=== PATIENT | male | born 1980 | race Two or more races ===

== ENCOUNTER 2017-08-11 03:29 | Emergency (ER) | payer MEDICAID ==
[~2017-08-11] VITALS: Ht 170.2 cm; Wt 79.4 kg
[~2017-08-11 03:29] MED LIST: BACITRACIN15 GM TOPIC; BACTRIM DS TAB1 EAC1 ORAL; FLOXIN OTIC10 DROP OT; NEXIUM20 MG ORAL; NKM
[2017-08-11 03:54] VITALS: BP 142/91
[2017-08-11] MEDS ORDERED: PREDNISONE20 MG ORAL (03:56)
[2017-08-11] MEDS ORDERED: BENADRYL25 MG ORAL (03:56)
[2017-08-11 04:02] VITALS: BP 142/91
--- NOTE | 2017-08-11 04:03 | Emergency Room Report ---
History of Present Illness General Chief Complaint: Skin Rash/Abscess Source: Patient, Medical Record Present Illness HPI Patient presents with complaints of rash He has noticed on his body back of his her Denies any itching to the area Denies any chest pain or shortness of breath Denies any recent travel Denies any change in his sleeping area Denies any change with work the area appeared this morning and he presents for further eval Allergies: Coded Allergies: No Known Allergies (Unverified , 11/22/14) Patient History Past Medical History: see triage record Pertinent Family History: none Reviewed Nursing Documentation: PMH: Agreed, PSxH: Agreed Nursing Documentation-PMH Hx Cardiac Problems: No Hx Cancer: No Hx Gastrointestinal Problems: Yes - gastritis Hx Neurological Problems: No Review of Systems All Other Systems: negative except mentioned in HPI Physical Exam Vital Signs Date Time Temp Pulse Resp B/P (MAP) Pulse Ox O2 Delivery O2 Flow Rate FiO2 08/11/17 03:34 97.3 80 15 142/91 98 Room Air Sp02 EP Interpretation: reviewed, normal General Appearance: well appearing, no apparent distress Head: normocephalic, atraumatic Eyes: bilateral eye PERRL, bilateral eye EOMI ENT: hearing grossly normal, normal pharynx Neck: supple Respiratory: chest non-tender, lungs clear Cardiovascular #1: regular rate, rhythm Gastrointestinal: non tender, soft Musculoskeletal: normal inspection Neurologic: normal inspection, alert, oriented x3 Skin: other - Several areas of small raised scabbed regions, abdominal area, several on the lower occipital region of the scalp, no obvious dermatomal pattern, no obvious fluctuance, no obvious involvement of the hands or feet oral mucosa is clear Lymphatic: no adenopathy Medical Decision Making Diagnostic Impression: Primary Impression: Rash and other nonspecific skin eruption ER Course Patient has a nonspecific rash Does not look to be in line with ringworm patient was concerned about this Does not appear to be in line with scabies likely insect bites clinically Patient treated symptomatically and will close outpatient followup , Last Vital Signs Date Time Temp Pulse Resp B/P (MAP) Pulse Ox O2 Delivery O2 Flow Rate FiO2 08/11/17 03:54 97.3 15 142/91 98 Room Air 08/11/17 03:34 80 Status: unchanged Disposition: HOME, SELF-CARE Condition: Stable Scripts Diphenhydramine Hcl* (BENADRYL*) 25 Mg Capsule 25 MG ORAL Q8HR Y for Itching, #21 CAP Prov: STEVEN JEAN D.O. 08/11/17 Prednisone* (PREDNISONE*) 20 Mg Tablet 20 MG ORAL BID, #10 TAB Prov: STEVEN JEAN D.O. 08/11/17 Referrals: NOT CHOSEN IPA/MD,REFERRING (PCP) Patient Instructions: Rash, Insect Bite, [id number] Additional Instructions: Patient is provided with the discharge instructions notified to follow up with primary doctor in the next 2-3 days otherwise return to the er with any worsening symptoms. Please note that this report is being documented using [employer] technology. This can lead to erroneous entry secondary to incorrect interpretation by the dictating instrument. STEVEN JEAN D.O. Aug 11, 2017 04:03
== END 2017-08-11 04:44 | disposition home or self-care (01) ==
LOC: EMR 03:46
DX: R21 Rash and other nonspecific skin eruption (principal)
CPT/HCPCS: 99284

== ENCOUNTER 2017-08-18 08:09 | Emergency (ER) | payer MEDICAID ==
[~2017-08-18] VITALS: Ht 170.2 cm; Wt 79.4 kg
[~2017-08-18 08:09] MED LIST changes: +BENADRYL25 MG ORAL; +PREDNISONE20 MG ORAL
[2017-08-18 08:24] VITALS: BP 143/96
[2017-08-18] MEDS ORDERED: PERMETHRIN60 GM TOPIC (08:33)
[2017-08-18 08:48] VITALS: BP 143/96
--- NOTE | 2017-08-18 08:56 | Emergency Room Report ---
History of Present Illness General Chief Complaint: Skin Rash/Abscess Source: Patient Present Illness HPI 37-year-old male presenting with a rash for more than 10 days. Patient was seen in the emergency room 7 days ago and was prescribed prednisone and Benadryl for symptomatic treatment of itchy rash. Patient states that it is on his arms in between his fingers and he feels a crawling sensation. No sick contacts or recent travel. No fever no chills Allergies: Coded Allergies: No Known Allergies (Unverified , 11/22/14) Patient History Past Medical History: see triage record Past Surgical History: none Pertinent Family History: none Reviewed Nursing Documentation: PMH: Agreed, PSxH: Agreed Nursing Documentation-PMH Past Medical History: No History, Except For Hx Cardiac Problems: No Hx Cancer: No Hx Gastrointestinal Problems: Yes - gastritis Hx Neurological Problems: No Review of Systems All Other Systems: negative except mentioned in HPI Physical Exam Vital Signs Date Time Temp Pulse Resp B/P (MAP) Pulse Ox O2 Delivery O2 Flow Rate FiO2 08/18/17 08:16 98.1 59 18 143/96 98 Room Air Sp02 EP Interpretation: reviewed, normal General Appearance: normal inspection, well appearing, no apparent distress, alert, GCS 15, non-toxic Head: normocephalic, atraumatic Eyes: bilateral eye normal inspection, bilateral eye PERRL, bilateral eye EOMI ENT: normal ENT inspection, normal pharynx, normal voice, moist mucus membranes Neck: normal inspection, full range of motion, supple Respiratory: normal inspection, lungs clear, normal breath sounds, no respiratory distress, no retraction, no wheezing, speaking full sentences, chest symmetrical Cardiovascular #1: normal inspection, regular rate, rhythm, no edema, normal capillary refill Cardiovascular #2: 2+ radial (R), 2+ radial (L) Gastrointestinal: normal inspection, non tender, soft, non-distended, no guarding Musculoskeletal: normal inspection, back normal, normal range of motion, non- tender Neurologic: normal inspection, alert, oriented x3, responsive, motor strength/ tone normal, sensory intact, normal gait, speech normal Psychiatric: normal inspection, judgement/insight normal, memory normal Skin: other - Scabby rash noted on arms, hands, intralobar of some fingers, as well as face. scratch lam noted Medical Decision Making Diagnostic Impression: Primary Impression: Scabies ER Course 37-year-old male with a rash for more than 10 days DDX: Appears to be scabies given the appearance, no signs of cellulitis Plan: None in the emergency room ER course: Patient has remained stable during ED stay. Disposition: Patient is to be discharged to home. Prescriptions given are permethrin cream, patient also instructed to keep clean entire house, throwing away all sheets, washing all clothes Patient is instructed to follow up with their primary care doctor within 5 days. Strict return precautions discussed with patient such as fever, chills, worsening/severe pain, chest pain, SOB, nausea, vomiting, which may indicate severe illness. Patient verbalizes understanding and agrees with plan. Please note that this Emergency Department Report was dictated using [employer] technology software, occasionally this can lead to erroneous entry secondary to interpretation by the dictation equipment Last Vital Signs Date Time Temp Pulse Resp B/P (MAP) Pulse Ox O2 Delivery O2 Flow Rate FiO2 08/18/17 08:48 98.1 18 143/96 98 Room Air 08/18/17 08:16 59 Disposition: HOME, SELF-CARE Condition: Stable Scripts Permethrin* (ELIMITE*) 60 Gm Cream..g. 1 APPLIC TOPIC ONCE, #60 GM 0 Refills Apply cream from head to toe; leave on for 8-14 hours before washing off with water; may reapply in 1 week if live mites appear. Prov: Ita Dan M.D. 08/18/17 Referrals: NOT CHOSEN IPA/MD,REFERRING (PCP) Patient Instructions: Scabies, Pediatric Additional Instructions: PLEASE FOLLOW UP WITH YOUR DOCTOR IN 1 WEEK Ita Dan M.D. Aug 18, 2017 08:56
== END 2017-08-18 08:49 | disposition home or self-care (01) ==
LOC: EMR 08:34
DX: B86 Scabies (principal)
CPT/HCPCS: 99283

== ENCOUNTER 2018-05-03 20:43 | Emergency (ER) | payer MEDICAID ==
[~2018-05-03] VITALS: Ht 170.2 cm; Wt 81.6 kg
[~2018-05-03 20:43] MED LIST changes: +PERMETHRIN60 GM TOPIC
[2018-05-03 21:03] VITALS: BP 153/90
--- NOTE | 2018-05-03 21:03 | Emergency Room Report ---
History of Present Illness General Chief Complaint: Palpitations Source: Patient Present Illness HPI Patient presents reporting that he did methamphetamine today for the first time around 4:00 Soon after that he had drank a beer and started feeling palpitation sensation He reports that the palpitations have been ongoing now for the past 2 hours Denies any chest pain with it denies any vomiting However he felt'shaky'was concern regarding the crystal meth use Was also concerned that he did not want his knowing about this Denies any back or flank pain denies any vomiting or diarrhea Allergies: Coded Allergies: No Known Allergies (Unverified , 11/22/14) Patient History Past Medical History: see triage record Pertinent Family History: none Reviewed Nursing Documentation: PMH: Agreed; PSxH: Agreed Nursing Documentation-PMH Hx Cardiac Problems: No Hx Cancer: No Hx Gastrointestinal Problems: Yes - gastritis Hx Neurological Problems: No Review of Systems All Other Systems: negative except mentioned in HPI Physical Exam Vital Signs Date Time Temp Pulse Resp B/P (MAP) Pulse Ox O2 Delivery O2 Flow Rate FiO2 05/03/18 20:51 98.3 128 16 153/90 97 Room Air 98.2 Sp02 EP Interpretation: reviewed, normal General Appearance: well appearing, no apparent distress Head: normocephalic, atraumatic Eyes: bilateral eye PERRL, bilateral eye EOMI ENT: hearing grossly normal, normal pharynx, TMs + canals normal, uvula midline Neck: full range of motion, supple, no meningismus, no bony tend Respiratory: lungs clear, normal breath sounds, no rhonchi, no respiratory distress, no retraction, no accessory muscle use Cardiovascular #1: normal peripheral pulses, regular rate, rhythm, no edema, no gallop, no JVD, no murmur Gastrointestinal: normal bowel sounds, non tender, soft, no mass, no organomegaly, non-distended, no guarding, no hernia, no pulsatile mass, no rebound Genitourinary: no CVA tenderness Musculoskeletal: normal inspection Neurologic: oriented x3, responsive, 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 nml as tested, motor strength/ tone normal, sensory intact Psychiatric: mood/affect normal Skin: normal color, no rash, warm/dry, palpation normal Lymphatic: normal inspection, no adenopathy Medical Decision Making Diagnostic Impression: Primary Impression: Palpitations Additional Impression: Drug abuse ER Course Patient is a fairly complex patient with multiple differential to consideration including but not limited to cardiac cardiopulmonary and vascular emergencies Patient has also reported methamphetamine use with alcohol ingestion Patient was provided with oral Ativan 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 Results EP Interpretation: yes Rate: 110 Rhythm: no PVC's, no ectopy, other - Sinus tach Last Vital Signs Date Time Temp Pulse Resp B/P (MAP) Pulse Ox O2 Delivery O2 Flow Rate FiO2 05/03/18 20:51 98.3 128 16 153/90 97 Room Air 98.2 Status: improved Disposition: HOME, SELF-CARE Condition: Improved Additional Instructions: Patient is provided with the discharge instructions notified to follow up with primary doctor in the next 2-3 days otherwise return to the er with any worsening symptoms. Please note that this report is being documented using [employer] technology. This can lead to erroneous entry secondary to incorrect interpretation by the dictating instrument. Zen Vincent DO May 03, 2018 21:03
[2018-05-03] MEDS ORDERED: LORazepam 1mg tab ORAL ONE (21:15)
[2018-05-03 23:32] VITALS: BP 124/88
[2018-05-03 23:34] VITALS: BP 124/88
--- NOTE | 2018-05-04 09:20 | Diagnostic Imaging Report ---
Indication: Chest pain Technique: One view of the chest Comparison: none Findings: Lungs and pleural spaces are clear. Heart size is normal Impression: No acute process
== END 2018-05-03 23:34 | disposition home or self-care (01) ==
LOC: EMR 21:15
DX: R00.0 Tachycardia, unspecified (principal); F15.10 Other stimulant abuse, uncomplicated; K29.70 Gastritis, unspecified, without bleeding; Z72.89 Other problems related to lifestyle
CPT/HCPCS: 71045; 80307; 99283

== ENCOUNTER 2019-10-20 07:01 | Emergency (ER) | payer MEDICAID ==
[~2019-10-20] VITALS: Ht 170.2 cm; Wt 83.9 kg
--- NOTE | 2019-10-20 07:13 | NUR ---
ED Nurse Note: Pt walked in from home c/o left knee pain 05/01 that started 2 weeks ago. Pt was gardening when the pain started. Per pt, the pain went away and then started again yesterday when he was working again. Pt denies trauma/N/V. Vitals stable as documented. Respirations even and unlabored on room air.
--- NOTE | 2019-10-20 07:19 | Emergency Room Report ---
History of Present Illness General Chief Complaint: Lower Extremity Injury Source: Patient, Significant Other Present Illness HPI Disclaimer: Please note that this report is being documented using [employer] technology. This can lead to erroneous entry secondary to incorrect interpretation by the dictating instrument. HPI: 39-year-old male presents for evaluation of left knee pain. 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 Noted some pain and swelling at that time but improved over the next few weeks. Yesterday he fell to his knees while gardening again onto some loose gravel. Denies any skin breakdown or rash. Difficulty with bending and extending the knee as well as standing due to pain but is still able to perform those activities. No prior history of knee surgery. Denies any numbness, skin rash, breakdown, weakness in the lower extremities. Denies history of gout, pseudogout or other inflammatory musculoskeletal diseases. Has applied a medicated cream for the knee but not applied ice or taken any NSAIDs other medications PMH: Denies PSH: Denies Allergies: Denies Social Hx: Reports tobacco use, alcohol use Allergies: Coded Allergies: No Known Allergies (Unverified , 11/22/14) Nursing Documentation-PMH Past Medical History: No Stated History Hx Cardiac Problems: No Hx Cancer: No Hx Gastrointestinal Problems: Yes - gastritis Hx Neurological Problems: No Review of Systems All Other Systems: negative except mentioned in HPI Physical Exam Vital Signs Date Time Temp Pulse Resp B/P (MAP) Pulse Ox O2 Delivery O2 Flow Rate FiO2 10/20/19 07:07 99.1 110 22 148/94 (112) 98 Room Air General: Awake and alert, no acute distress HEENT: NC/AT. EOMI. Resp: Normal work of breathing Skin: Intact. No abrasions, laceration or rash over the exposed skin MSK: Normal tone and bulk. Moving all extremities. No obvious deformity. There is tenderness palpation over the patella and mild surrounding edema without overlying warmth, no erythema, no skin breakdown, no rash, no vesicles. Joint is stable on varus and valgus testing as well as Lockman testing. Circumferential tenderness to palpation. Neuro: Awake and alert. Mentating appropriately. Sensation intact over the dermatomes of lower extremities. Procedures Splinting Splinting : Consent: Verbal Location: Left knee Pre-Made Type: FLORECITA wrap Pre-Proc Neuro Vasc Exam: normal Post-Proc Neuro Vasc Exam: normal Patient Tolerated: Well Complications: None Medical Decision Making Diagnostic Impression: Primary Impression: Knee pain ER Course 31-year-old male presented for evaluation of left knee pain after an injury 2 weeks ago and a reinjury yesterday. Mild swelling and diffuse tenderness palpation around but no inflammatory signs. Differential includes was not limited to ligamentous injury, contusion, meniscal injury, fracture, dislocation to name a few. Will treat with ibuprofen obtain a x-ray of the knee though at this time is more likely a contusion or soft tissue injury rather than a fracture dislocation Other X-Ray Diagnostic Results Other X-Ray Diagnostic Results : X-Ray ordered: Left knee # of Views/Limited Vs Complete: 3 View Indication: Pain EP Interpretation: Yes Interpretation: no dislocation, no fractures Impression: No acute disease Electronically Signed by: Electronically signed by Dr. Magdi Ford Reevaluation Time: 08:05 Last Vital Signs Date Time Temp Pulse Resp B/P (MAP) Pulse Ox O2 Delivery O2 Flow Rate FiO2 10/20/19 07:07 99.1 110 22 148/94 (112) 98 Room Air Reevaluation Impression No evidence of fracture or dislocation. Possible contusion or overuse injury. Ligamentous or meniscal injury not excluded the patient can follow-up on an outpatient basis. Will include the name of orthopedic urgent care and placed the patient in a knee wrap. Will discharge on NSAIDs. Follow-up with orthopedics and PMD. Discussed reasons to return to the emergency department. He understands and agrees with treatment plan. Disposition: HOME, SELF-CARE Condition: Stable Scripts Ibuprofen* (MOTRIN*) 600 Mg Tablet 600 MG ORAL Q8H PRN for For Pain, #30 TAB 0 Refills Prov: Magdi Ford MD 10/20/19 Magdi Ford MD Oct 20, 2019 07:18
--- NOTE | 2019-10-20 07:37 | NUR ---
ED Nurse Note: pt in xray
--- NOTE | 2019-10-20 07:39 | NUR ---
Warren zhou in EDM - 10/20/19 at 0740 by MARION ED Nurse Note: Gabriel Espinoza @ bedside
[2019-10-20] MEDS ORDERED: IBUPROFEN600 MG ORAL (08:04)
--- NOTE | 2019-10-20 08:05 | NUR ---
ED Nurse Note: Pt's left knee wrapped with shawn bandage
[2019-10-20 08:16] VITALS: BP 145/92
--- NOTE | 2019-10-20 08:16 | NUR ---
ER DISCHARGE NOTE: Patient is cleared to be discharged per ERMD, pt is aox4, on room air, with stable vital signs as documented. pt was given dc and prescription instructions, pt was able to verbalize understanding, pt id band removed. pt is able to ambulate steady, but with limp d/t knee pain. pt took all belongings.
--- NOTE | 2019-10-20 09:33 | Diagnostic Imaging Report ---
Indication: Knee pain for 2 weeks post trauma Technique: 3 views of the left knee Comparison: None Findings: There is superficial prepatellar soft tissue swelling. No acute fractures. No suprapatellar effusion. The joint spaces are preserved Impression: Evidence of prepatellar soft tissue swelling No acute bony trauma
== END 2019-10-20 08:20 | disposition home or self-care (01) ==
LOC: EMR 07:17
DX: M25.562 Pain in left knee (principal)
CPT/HCPCS: 73562; Z7502; 99283